=== PATIENT | female | born 1975 | race African-American/Black ===

== ENCOUNTER 2016-07-17 05:04 | Emergency (ER) | payer OTHER ==
[~2016-07-17] VITALS: Ht 160 cm; Wt 94.7 kg
[~2016-07-17 05:04] MED LIST: AMLO10 PO; OMEP40CA2 PO
[2016-07-17 05:10] VITALS: BP 134/88; PULSE 85; RESP 18; TEMP 98.4; O2SAT 100
[2016-07-17] MEDS ORDERED: OMEP40CA2 PO (05:26)
[2016-07-17] MEDS ORDERED: AMLO10TA2 PO (05:26)
[2016-07-17] MEDS ORDERED: AMOXICILLIN/CLAVULANATE K 875 MG TAB PO ONE (05:30)
[2016-07-17] MEDS ORDERED: IBUPROFEN 800 MG TAB PO ONE (05:30)
[2016-07-17] MEDS ORDERED: AUGM875T PO (05:35)
--- NOTE | 2016-07-17 05:35 | PD ---
HPI Chief Complaint: ENT Complaint Time Seen by Provider: 05:29 Travel History International Travel<30 days: No Contact w/Intl Traveler<30days: No Traveled to known affect area: No History of Present Illness HPI 41-year-old female presents to the emergency department for complaint of right ear pain with purulent drainage. Patient is noted symptoms with worsening over the last 3 days. Patient has chronic right ear issues with intermittent drainage in the past. Patient reports she's been seen by an learning and development intern in the remote past 2 gave her prescription for eardrops that she is use sparingly as needed. Patient ran out of these drops and cannot recall what they were and purchased [id number] eardrops. No reported fever or chills patient does complain of pain with opening closing of the jaw and has also noted some throat pain. Patient is also noted some sinus drainage and posterior nasal drainage. Patient does not report any cough congestion shortness of breath chest pain abdominal pain nausea vomiting or other concerns. Patient denies . PFSH Past Medical History Narrative Medical Hypertension, heart murmur, ear infection, tubal ligation, no tobacco use; nursing notes reviewed Cancer: No Cardiovascular Problems: Yes (HTN, MURMUR) Diabetes: No Diminished Hearing: No Endocrine: No Gastrointestinal Disorders: Yes GERD: Yes Genitourinary: No Hepatitis: No Hiatal Hernia: No Hypertension: Yes Immune Disorder: No Musculoskeletal: No Neurologic: No Psychiatric: No Reproductive: No Respiratory: No Thyroid Disease: No Tetanus Vaccination: < 5 Years Influenza Vaccination: Yes ?: Not LMP: 07/16/16 : 5 Para: 5 Miscarriage: 0 Tubal Ligation: Yes Past Surgical History Abdominal Surgery: No AICD: No Cardiac Surgery: No Section: Yes Ear Surgery: No Endocrine Surgery: No Eye Surgery: No Genitourinary Surgery: No Gynecologic Surgery: Yes (TUBAL LIGATION) Joint Replacement: No Oral Surgery: No Pacemaker: No Thoracic Surgery: No Other Surgery: Yes Family History Family Hypercholesterolemia: Yes Social History Alcohol Use: Yes (SOCIALLY) Tobacco Use: No Substance Use: No Allergies-Medications (Allergen,Severity, Reaction): Coded Allergies: Percocet (Verified Allergy, Severe, 07/17/16) PT DENIES Reported Meds & Prescriptions Reported Meds & Active Scripts Active Augmentin (Amoxicillin-Clavulanate) 875-125 mg Tab 875 Mg PO BID not for use in CrCl <30 ml/min. Reported Omeprazole 40 Mg Cap 40 Mg PO DAILY Amlodipine (Amlodipine Besylate) 10 Mg Tab 10 Mg PO DAILY Review of Systems Except as stated in HPI: all other systems reviewed are Neg General / Constitutional: No: Fever, Chills HENT: Positive: Sore Throat, Congestion, Ear Discharge, Earache Cardiovascular: No: Chest Pain or Discomfort Respiratory: No: Shortness of Breath Gastrointestinal: No: Vomiting Genitourinary: No: Dysuria Musculoskeletal: No: Pain Skin: No Rash Psychiatric: No: Depression Hematologic/Lymphatic: No: Lymph Node Enlargement Physical Exam Narrative GENERAL: Well-developed well-nourished female in no acute distress no respiratory distress SKIN: Warm and dry. HEAD: Normocephalic. EYES: No scleral icterus. No injection or drainage. ENT: Mucous membranes moist airway is patent tonsillar edema with scant exudative change; tympanic membranes left no redness no dullness no loss of landmarks, right small perforation with scant amount of purulent drainage no blood noted no external auditory canal edema erythema noted. NECK: Supple, trachea midline. No JVD or lymphadenopathy. CARDIOVASCULAR: Regular rate and rhythm without murmurs, gallops, or rubs. RESPIRATORY: Breath sounds equal bilaterally. No accessory muscle use. GASTROINTESTINAL: Abdomen soft, non-tender, nondistended. MUSCULOSKELETAL: No cyanosis, or edema. BACK: Nontender without obvious deformity. No CVA tenderness. Data Data Last Documented VS Vital Signs Date Time Temp Pulse Resp B/P Pulse Ox O2 Delivery O2 Flow Rate FiO2 07/17/16 05:10 98.4 85 18 134/88 100 Orders Group A Rapid Strep Screen (07/17/16 05:29) Amoxicil-Clavulanate (Augmentin) (07/17/16 05:30) Ibuprofen (Motrin) (07/17/16 05:30) Strep Culture (Group A) (07/17/16 05:45) MDM Medical Decision Making Medical Screen Exam Complete: Yes Emergency Medical Condition: Yes Medical Record Reviewed: Yes Interpretation(s) RSA: negative Differential Diagnosis Otitis media, tympanic membrane perforation, otitis externa, sinusitis, pharyngitis upper respiratory infection Narrative Course Rapid strep antigen ordered; first dose of oral antibiotic Augmentin 875 administered along with ibuprofen 800 mg times one dose Patient encouraged to follow-up with learning and development intern Diagnosis Primary Impression: Otitis media Qualified Code: H66.011 - Acute suppurative otitis media of right ear with spontaneous rupture of tympanic membrane, recurrence not specified Referrals: Ear / Nose / Throat Specialist call for appointment Patient Instructions: General Instructions Med/Other Pt SpecificInfo: Prescription(s) given Scripts Amoxicillin-Clavulanate (Augmentin)875-125 mg Gao475 Mg PO BID #20 TAB Ref 0 not for use in CrCl <30 ml/min. Prov:Carrie Ogden MD 07/17/16 Disposition: DISCHARGE HOME Condition: Stable Carrie Ogden MD Jul 17, 2016 05:35
== END 2016-07-17 05:50 | disposition home or self-care (01) ==
LOC: PHED 05:04
DX: H66.011 Acute suppurative otitis media with spontaneous rupture of ear drum, right ear (principal); R07.0 Pain in throat; R09.82 Postnasal drip; I10 Essential (primary) hypertension; Z86.79 Personal history of other diseases of the circulatory system; Z87.19 Personal history of other diseases of the digestive system
CPT/HCPCS: 87081; 87880; 99283

== ENCOUNTER → 2016-08-04 | Outpatient (CLI) | payer OTHER ==
[~2016-08-04] MED LIST changes: -AMLO10 PO; +AMLO10TA2 PO; +AUGM875T PO
[2016-08-04 08:27] LABS: AUTOMATED NEUTROPHIL # 4.5 TH/MM3 (1.8-7.7); BASOPHIL # 0.1 TH/MM3 (0-0.2); BASOPHIL % 0.9 % (0.0-2.0); EOSINOPHIL # 0.1 TH/MM3 (0-0.4); EOSINOPHIL % 1.6 % (0.0-4.0); HEMATOCRIT 38.3 % (35.0-46.0); HEMO FLAGS DIFF FINAL; LYMPH % 28.7 % (9.0-44.0); LYMPHOCYTE # 2.2 TH/MM3 (1.0-4.8); MEAN CELL VOLUME 89.7 FL (80.0-100.0); MEAN CORPUSCULAR HEMOGLOBIN 29.3 PG (27.0-34.0); MEAN CORPUSCULAR HGB CONC 32.7 % (32.0-36.0); MONO % 9.7 % (0.0-8.0); NEUT % 59.1 % (16.0-70.0); PLATELET COUNT 281 TH/MM3 (150-450); RED BLOOD COUNT 4.27 MIL/MM3 (4.00-5.30); RED CELL DISTRIBUTION WIDTH 13.6 % (11.6-17.2); WHITE BLOOD COUNT 7.6 TH/MM3 (4.0-11.0)
[2016-08-04 08:53] LABS: ANION GAP 8 MEQ/L (5-15); AST (GOT) 10 U/L (15-37); BICARBONATE 25.5 MEQ/L (21.0-32.0); BLOOD UREA NITROGEN 10 MG/DL (7-18); CHLORIDE 108 MEQ/L (98-107); GLOMERULAR FILTRATION RATE 98 ML/MIN (>89); GLUCOSE,FASTING 77 MG/DL (74-99); POTASSIUM 3.9 MEQ/L (3.5-5.1); SODIUM (NA) 141 MEQ/L (136-145)
[2016-08-04 09:18] LABS: ALKALINE PHOSPHATASE 85 U/L (45-117); ALT (GPT) 24 U/L (10-53); HDL CHOLESTEROL 40.6 MG/DL (40.0-60.0); LDL CHOLESTEROL 77 MG/DL (0-99); TOTAL BILIRUBIN ADULT 0.7 MG/DL (0.2-1.0)
[2016-08-04 12:27] LABS: HEMOGLOBIN A1a 0.9 %; HEMOGLOBIN A1b 1.5 %; HEMOGLOBIN Ao 86.2 %; HEMOGLOBIN LA1C 1.9 %; HEMOGLOBIN P3 3.6 %
== END ==
LOC: CLAB 08:01
PROVIDERS: ATTEND Family Medicine
DX: Z00.00 Encounter for general adult medical examination without abnormal findings (principal)
CPT/HCPCS: 36415; 80053; 80061; 82306; 82607; 82746; 83036; 84443; 85025; 86703

== ENCOUNTER → 2016-08-18 | Day surgery (SDC) | payer OTHER ==
[~2016-08-18] MED LIST changes: +BACITRACIN IM FOR SOLN 50,000 UNIT VIAL ONE; +BUPIVACAINE HCL PF 0.75% 30 ML VIAL ONE; +EPINEPHrine HCL (1:1000) 30 MG/30 ML VIAL ONE; +LACTATED RINGER'S 1000 ML INJ 1,000 ML ONE; +LIDOCAINE 1%/EPINEPHrine 1:200,000 PF SOLN 10 ML VIAL NERV BLOCK ONE; +MIDAZOLAM HCL 5 MG/ML VIAL (1 ML) ONE; +ONDANSETRON HCL 4 MG/2 ML VIAL IV PUSH ONE; +PROPOFOL 200 MG/20 ML AMP IV ONE; +SODIUM CHLORIDE 0.9% INJ 10 ML ONE; +ceFAZolin 2 GM PREMIX 50 ML ONE; +ceFAZolin INJ 1,000 MG VIAL ONE
--- NOTE | 2016-08-19 07:00 | MP ---
cc: CLARY MORAES M.D. DATE OF SURGERY 08/18/2016 PREOPERATIVE DIAGNOSIS Right knee anterior cruciate ligament tear, right knee lateral meniscus tear. POSTOPERATIVE DIAGNOSES Right knee anterior cruciate ligament tear, right knee lateral meniscus tear. PROCEDURE 1. Right knee arthroscopic anterior cruciate ligament allograft Reconstruction. 2. Right knee arthroscopic partial lateral meniscectomy. SURGEON Clary Moraes MD MILLWRIGHT ALMAS Schmidt ANESTHESIA General with femoral nerve block. ESTIMATED BLOOD LOSS Less than 50 cc TOURNIQUET TIME 0 minutes COMPLICATIONS None IMPLANTS USED Arthrex JUSTIFICATION The patient is a 41-year female who injured the right knee. She had pains and instability symptoms in regards to her condition, failure of conservative treatment. Clinical exam as well as MRI confirmed the above-named findings. The patient counseled as to the risks, benefits and alternatives to the above-named proposed surgical procedure. She did wish to proceed with surgery. PROCEDURE IN DETAIL A written consent obtained. The patient identified by name. She was taken to the operating room, placed supine on outpatient. General anesthesia was administered as well as two grams of IV Ancef. A well-padded tourniquet was placed on the right thigh. The right lower extremity prepped and draped using Isopropyl alcohol, Hibiclens solution and DuraPrep solution. After a time-out was performed, a standard medial and lateral parapatellar arthroscopic portal was established. The patellofemoral joint revealed minimal chondromalacia. The medial compartment revealed no significant chondromalacia. The medial meniscus was probed. No evidence of full-thickness tearing. The anterior cruciate ligament was examined and noted to have a full-thickness tear. The lateral meniscus showed a bucket-handle tear with multiple complex tears within the meniscus itself. An arthroscopic biter followed by an arthroscopic shaver was introduced into the lateral compartment to perform partial lateral meniscectomy. The meniscal rim was probed and noted to be stable. There is focal grade 2 chondromalacia in the lateral femoral condyle in line with the bucket-handle tear. The shaver was used to perform a debridement of the torn anterior cruciate ligament stump. An arthroscopic bur was used to perform a notchplasty. An Arthrex retro cutting tibial guide centered within the footprint of the [place] ACL insertion and a guide pin was used to capture the 10-mm reamer and the tibial tunnel retro cut to 10 mm in diameter. An Arthrex 7-mm [id number] medial portal guide was placed along the wall lateral femoral condyle and the knee was hyperflexed. From the medial portal, a guide pin was then drilled exiting the lateral femoral condyle and a low profile 10 mm cannulated reamer was drilled to a depth of 25 mm. The shaver was used to clean soft tissue and bone debris from within the knee joint. A FiberLink suture was then used to shuttle with the Beath needle from the medial portal exiting the lateral femoral condyle and some point from the tibial tunnel. On the back table, the still worker helper tibialis tendon allograft was thawed in antibiotic solution. Physician Jossy Schmidt Certified, fashioning the graft to a folded diameter of 10 mm. #2 FiberWire sutures were placed in proximal and distal portion of the graft and the graft was pre-tensioned on the back table. An Arthrex tightrope suture anchor was placed in the midportion of the graft. The sutures from the tightrope were then placed through the eyelet of the FiberLink suture and then shuttled from the tibial tunnel exiting the femoral tunnel. The tightrope button was then pulled from the tibial tunnel exiting the lateral femoral condyle. There was good purchase and fixation once it was pulled distally from lateral cortex. The graft taken from the tibial tunnel was then seated into the femoral tunnel. The graft was taken through a full range of motion. No evidence of pistoning or impingement. With the leg held in near full extension, a guidewire was placed along the anterior border of the graft and an Arthrex 10 x 28 mm bioabsorbable screw was used for interference fixation on the tibial side. An intraoperative Zach examination was performed which was negative. The graft exiting the tibial tunnel was removed with a 10 blade scalpel. The tibial incision was closed with 3-0 Vicryl suture. Skin incisions closed with 3-0 Prolene. Sterile dressing applied. The patient tolerated the procedure well. No intraoperative complications noted. Physician Jossy Schmidt Certified was present during the entire procedure to include patient positioning and the procedure itself. The medical necessity of a physician laundry assistant was indicated in this case due to the complexity of the procedure. He assisted with appropriate manipulation of the leg and manipulation of the camera. He assisted with drilling of tibial and femoral tunnels, as well as implantation of the graft and implantation of internal fixation devices for reconstruction. He also assisted with preparation of the graft for the purposes of reconstruction. MD MARK Cortez/MICHAEL /2:25 PM /6:41 AM
== END | disposition home or self-care (01) ==
LOC: ESDC 11:14
PROVIDERS: ATTEND Orthopaedic Surgery Sports Medicine
DX: S83.511A Sprain of anterior cruciate ligament of right knee, initial encounter (principal); S83.251A Bucket-handle tear of lateral meniscus, current injury, right knee, initial encounter
CPT/HCPCS: 01400; 01991; 29881; 29888; 64447; C1713; J0171; J0690; J2250; J2405; J3010; J7120

== ENCOUNTER → 2016-10-04 | Outpatient (CLI) | payer OTHER ==
[~2016-10-04] MED LIST changes: -BACITRACIN IM FOR SOLN 50,000 UNIT VIAL ONE; -BUPIVACAINE HCL PF 0.75% 30 ML VIAL ONE; -EPINEPHrine HCL (1:1000) 30 MG/30 ML VIAL ONE; -LACTATED RINGER'S 1000 ML INJ 1,000 ML ONE; -LIDOCAINE 1%/EPINEPHrine 1:200,000 PF SOLN 10 ML VIAL NERV BLOCK ONE; -MIDAZOLAM HCL 5 MG/ML VIAL (1 ML) ONE; -ONDANSETRON HCL 4 MG/2 ML VIAL IV PUSH ONE; -PROPOFOL 200 MG/20 ML AMP IV ONE; -SODIUM CHLORIDE 0.9% INJ 10 ML ONE; -ceFAZolin 2 GM PREMIX 50 ML ONE; -ceFAZolin INJ 1,000 MG VIAL ONE
[2016-10-04 10:55] LABS: BACTERIA, URINE OCC /hpf; BLOOD, URINE NEG (NEG); GLUCOSE,URINE NEG (NEG); KETONE, URINE NEG (NEG); MUCUS URINE FEW /lpf (OCC); NITRITE,URINE NEG (NEG); PH, URINE 6.5 (5.0-8.5); SQUAMOUS EPITHELIAL CELL URINE 2 /hpf (0-5); URINE COLOR YELLOW (YELLW/STRAW)
== END ==
LOC: CLAB 10:06
PROVIDERS: ATTEND Family Medicine
DX: Z00.00 Encounter for general adult medical examination without abnormal findings (principal)
CPT/HCPCS: 81001

== ENCOUNTER 2017-06-11 09:01 | Emergency (ER) | payer OTHER ==
[~2017-06-11] VITALS: Ht 162.6 cm; Wt 93.0 kg
[2017-06-11 09:12] VITALS: BP 114/73; PULSE 80; RESP 17; TEMP 98; O2SAT 98
--- NOTE | 2017-06-11 09:20 | PD ---
HPI Chief Complaint: Syncope/Near-Syncope Time Seen by Provider: 09:15 Travel History International Travel<30 days: No Contact w/Intl Traveler<30days: No Traveled to known affect area: No History of Present Illness HPI Apparently the patient exhibited some episodes of dizziness when she got up from the bathroom and also experienced another episode while she was on her bed. Seems to get worse whenever she changes positions particularly overhead. Room spinning sensation. Allergies listed as oxycodone Past medical history significant for hypertension, murmur, cholecystectomy, GERD , tubal ligation, , PFSH Past Medical History Cancer: No Cardiovascular Problems: Yes (HTN, MURMUR) Diabetes: No Diminished Hearing: No Endocrine: No Gastrointestinal Disorders: Yes GERD: Yes Genitourinary: No Hepatitis: No Hiatal Hernia: No Hypertension: Yes Immune Disorder: No Musculoskeletal: No Neurologic: No Psychiatric: No Reproductive: No Respiratory: No Thyroid Disease: No ?: Not LMP: 06/06 : 5 Para: 5 Miscarriage: 0 Tubal Ligation: Yes Past Surgical History Abdominal Surgery: No AICD: No Cardiac Surgery: No Section: Yes Cholecystectomy: Yes Ear Surgery: No Endocrine Surgery: No Eye Surgery: No Genitourinary Surgery: No Gynecologic Surgery: Yes (TUBAL LIGATION) Joint Replacement: No Oral Surgery: No Pacemaker: No Thoracic Surgery: No Other Surgery: Yes Family History Family Hypercholesterolemia: Yes Social History Alcohol Use: Yes (SOCIALLY) Tobacco Use: No Substance Use: No Allergies-Medications (Allergen,Severity, Reaction): Coded Allergies: acetaminophen (Unverified Allergy, Severe, 06/11/17) PT DENIES oxycodone (Unverified Allergy, Severe, 06/11/17) PT DENIES Reported Meds & Prescriptions Reported Meds & Active Scripts Active Reported Omeprazole 40 Mg Cap 40 Mg PO DAILY Amlodipine (Amlodipine Besylate) 10 Mg Tab 10 Mg PO DAILY Review of Systems General / Constitutional: No: Fever Eyes: No: Visual changes HENT: Positive: Vertigo Cardiovascular: No: Chest Pain or Discomfort Respiratory: No: Shortness of Breath Gastrointestinal: No: Abdominal Pain Genitourinary: No: Dysuria Musculoskeletal: No: Pain Skin: No Rash Neurologic: No: Weakness Psychiatric: No: Depression Endocrine: No: Polydipsia Hematologic/Lymphatic: No: Easy Bruising Physical Exam Narrative GENERAL: SKIN: Warm and dry. HEAD: Atraumatic. Normocephalic. EYES: Pupils equal and round. No scleral icterus. No injection or drainage. ENT: No nasal bleeding or discharge. Mucous membranes pink and moist. NECK: Trachea midline. No JVD. CARDIOVASCULAR: Regular rate and rhythm. RESPIRATORY: No accessory muscle use. Clear to auscultation. Breath sounds equal bilaterally. GASTROINTESTINAL: Abdomen soft, non-tender, nondistended. Hepatic and splenic margins not palpable. MUSCULOSKELETAL: Extremities without clubbing, cyanosis, or edema. No obvious deformities. NEUROLOGICAL: Awake and alert. No obvious cranial nerve deficits. Motor grossly within normal limits. Five out of 5 muscle strength in the arms and legs. Normal speech. PSYCHIATRIC: Appropriate mood and affect; insight and judgment normal. Data Data Last Documented VS Vital Signs Date Time Temp Pulse Resp B/P (MAP) Pulse Ox O2 Delivery O2 Flow Rate FiO2 06/11/17 09:12 98.0 80 17 114/73 (87) 98 Room Air Orders Orders Electrocardiogram (06/11/17 10:11) Complete Blood Count With Diff (06/11/17 10:11) Comprehensive Metabolic Panel (06/11/17 10:11) Troponin I (06/11/17 10:11) B-Type Natriuretic Peptide (06/11/17 10:11) Lipase (06/11/17 10:11) Urinalysis - C+S If Indicated (06/11/17 10:11) Thyroid Stimulating Hormone (06/11/17 10:11) Ct Brain W/O Iv Contrast(Rout) (06/11/17 10:11) Ed Urine Pregnancytest Poc (06/11/17 10:11) Drug Screen, Random Urine (06/11/17 10:11) Alcohol (Ethanol) (06/11/17 10:11) Urine Culture (06/11/17 10:21) Ed Discharge Order (06/11/17 12:51) Labs Laboratory Tests Test 06/11/17 09:20 06/11/17 10:21 White Blood Count 5.1 TH/MM3 Red Blood Count 4.25 MIL/MM3 Hemoglobin 13.2 GM/DL Hematocrit 38.8 % Mean Corpuscular Volume 91.3 FL Mean Corpuscular Hemoglobin 31.0 PG Mean Corpuscular Hemoglobin Concent 34.0 % Red Cell Distribution Width 13.4 % Platelet Count 329 TH/MM3 Mean Platelet Volume 8.0 FL Neutrophils (%) (Auto) 59.2 % Lymphocytes (%) (Auto) 30.8 % Monocytes (%) (Auto) 8.3 % Eosinophils (%) (Auto) 0.9 % Basophils (%) (Auto) 0.8 % Neutrophils # (Auto) 3.0 TH/MM3 Lymphocytes # (Auto) 1.6 TH/MM3 Monocytes # (Auto) 0.4 TH/MM3 Eosinophils # (Auto) 0.0 TH/MM3 Basophils # (Auto) 0.0 TH/MM3 CBC Comment DIFF FINAL Differential Comment Blood Urea Nitrogen 10 MG/DL Creatinine 0.82 MG/DL Random Glucose 99 MG/DL Total Protein 7.6 GM/DL Albumin 3.5 GM/DL Calcium Level 8.6 MG/DL Alkaline Phosphatase 76 U/L Aspartate Amino Transf (AST/SGOT) 13 U/L Alanine Aminotransferase (ALT/SGPT) 27 U/L Total Bilirubin 0.4 MG/DL Sodium Level 143 MEQ/L Potassium Level 3.9 MEQ/L Chloride Level 111 MEQ/L Carbon Dioxide Level 21.7 MEQ/L Anion Gap 10 MEQ/L Estimat Glomerular Filtration Rate 93 ML/MIN Troponin I LESS THAN 0.02 NG/ML B-Type Natriuretic Peptide 3 PG/ML Lipase 117 U/L Thyroid Stimulating Hormone 3rd Gen 1.060 uIU/ML Ethyl Alcohol Level 49 MG/DL Urine Color YELLOW Urine Turbidity HAZY Urine pH 6.5 Urine Specific [place] 1.019 Urine Protein TRACE mg/dL Urine Glucose (UA) NEG mg/dL Urine Ketones TRACE mg/dL Urine Occult Blood LARGE Urine Nitrite POS Urine Bilirubin NEG Urine Urobilinogen LESS THAN 2.0 MG/DL Urine Leukocyte Esterase TRACE Urine RBC 1 /hpf Urine WBC 4 /hpf Urine Squamous Epithelial Cells 13 /hpf Urine Bacteria FEW /hpf Urine Mucus MOD /lpf Microscopic Urinalysis Comment CULTURE INDICATED Urine Opiates Screen NEG Urine Barbiturates Screen NEG Urine Amphetamines Screen NEG Urine Benzodiazepines Screen NEG Urine Cocaine Screen NEG Urine Cannabinoids Screen NEG MDM Medical Decision Making Medical Screen Exam Complete: Yes Emergency Medical Condition: Yes Medical Record Reviewed: Yes Interpretation(s) EKG shows normal sinus rhythm, 79 bpm, JEZ pattern noted, no STEMI pattern noted. Pulse ox pulse ox on room air which is within normal limits Differential Diagnosis Vertigo versus intracranial hemorrhage versus electrolyte abnormalities versus atypical STEMI Narrative Course UA C/W UTI TOX SCREEN NEG BUT ETOH 49 CBC NEG LEUKOCYTOSIS/ANEMIA/ OR LEFT SHIFT, NORMAL PLATELETS NORMAL ELECTROLYTES, NORMAL LIVER/KIDNEY/PANCREAS AND TSH Diagnosis Primary Impression: Vertigo Additional Impressions: Right otitis media Qualified Codes: H65.91 - Unspecified nonsuppurative otitis media, right ear UTI (urinary tract infection) Qualified Codes: N30.00 - Acute cystitis without hematuria Patient Instructions: Ear Infection (ED), General Instructions, Urinary Tract Infection in Women (DC), Vertigo (DC) Scripts Meclizine (Meclizine) 25 Mg Tab 25 MG PO TID Y for VERTIGO for 5 Days, #15 TAB 0 Refills Prov: Oumar Polk MD 06/11/17 Ciprofloxacin (Cipro) 500 Mg Tab 500 MG PO BID for Infection for 5 Days, #10 TAB 0 Refills Prov: Oumar Polk MD 06/11/17 Disposition: 01 DISCHARGE HOME Condition: Stable Oumar Polk MD Jun 11, 2017 09:20
[2017-06-11 10:52] LABS: BASOPHIL % 0.8 % (0.0-2.0); EOSINOPHIL % 0.9 % (0.0-4.0); HEMATOCRIT 38.8 % (35.0-46.0); HEMOGLOBIN 13.2 GM/DL (11.6-15.3); LYMPH % 30.8 % (9.0-44.0); LYMPHOCYTE # 1.6 TH/MM3 (1.0-4.8); MEAN CELL VOLUME 91.3 FL (80.0-100.0); MONO % 8.3 % (0.0-8.0); MONOCYTE # 0.4 TH/MM3 (0-0.9); NEUT % 59.2 % (16.0-70.0); PLATELET COUNT 329 TH/MM3 (150-450); RED BLOOD COUNT 4.25 MIL/MM3 (4.00-5.30); RED CELL DISTRIBUTION WIDTH 13.4 % (11.6-17.2); WHITE BLOOD COUNT 5.1 TH/MM3 (4.0-11.0)
[2017-06-11 10:58] LABS: ALBUMIN 3.5 GM/DL (3.4-5.0); AST (GOT) 13 U/L (15-37); BICARBONATE 21.7 MEQ/L (21.0-32.0); BLOOD UREA NITROGEN 10 MG/DL (7-18); CALCIUM 8.6 MG/DL (8.5-10.1); CHLORIDE 111 MEQ/L (98-107); CREATININE 0.82 MG/DL (0.50-1.00); GLOMERULAR FILTRATION RATE 93 ML/MIN (>89); GLUCOSE,RANDOM 99 MG/DL (74-106); SODIUM (NA) 143 MEQ/L (136-145)
[2017-06-11 10:59] LABS: ALT (GPT) 27 U/L (10-53)
[2017-06-11 11:09] LABS: ALKALINE PHOSPHATASE 76 U/L (45-117); TOTAL BILIRUBIN ADULT 0.4 MG/DL (0.2-1.0); TOTAL PROTEIN 7.6 GM/DL (6.4-8.2); TROPONIN I LESS THAN 0.02 NG/ML (0.02-0.05)
[2017-06-11 11:39] LABS: BACTERIA, URINE FEW /hpf; BILIRUBIN, URINE NEG (NEG); BLOOD, URINE LARGE (NEG); GLUCOSE,URINE NEG (NEG); KETONE, URINE TRACE mg/dL (NEG); MUCUS URINE MOD /lpf (OCC); NITRITE,URINE POS (NEG); PH, URINE 6.5 (5.0-8.5); SQUAMOUS EPITHELIAL CELL URINE 13 /hpf (0-5); URINE COLOR YELLOW (YELLW/STRAW); URINE LEUKOCYTE ESTERASE TRACE (NEG)
--- NOTE | 2017-06-11 11:48 | RADRPT ---
EXAM DATE/TIME: 06/11/2017 11:12 [facility] COMPARISON: No previous studies available for comparison. INDICATIONS : Dizziness, nausea. RADIATION DOSE: 39.43 CTDIvol (mGy) MEDICAL HISTORY : Cardiovascular disease. Hypertension. SURGICAL HISTORY : Tubal ligation. ENCOUNTER: Initial ACUITY: 1 day PAIN SCALE: 0/10 LOCATION: cranial TECHNIQUE: Multiple contiguous axial images were obtained of the head. Using automated exposure control and adj ustment of the mA and/or kV according to patient size, radiation dose was kept as low as reasonably a chievable to obtain optimal diagnostic quality images. DICOM format image data is available electro nically for review and comparison. FINDINGS: CEREBRUM: The ventricles are normal for age. No evidence of midline shift, mass lesion, hemorrhage or acute in farction. No extra-axial fluid collections are seen. POSTERIOR FOSSA: The cerebellum and brainstem are intact. The 4th ventricle is midline. The cerebellopontine angle i s unremarkable. EXTRACRANIAL: The visualized portion of the orbits is intact. SKULL: The calvaria is intact. No evidence of skull fracture. CONCLUSION: Normal examination. Nigel Deleon MD on June 11, 2017 at 11:46 Board Certified Radiologist. This report was verified electronically.
[2017-06-11] MEDS ORDERED: MECL-62 PO (12:56)
[2017-06-11] MEDS ORDERED: CIPR-9 PO (12:56)
--- NOTE | 2017-06-11 14:58 | EKG ---
Date Performed: 06/11/2017 Time Performed: 09:15:59 PTAGE: 42 years EKG: Sinus rhythm NORMAL ECG Compared to prior electrocardiogram, rate has increased PREVIOUS TRACING : 07/13/2015 23.09 DOCTOR: Paul Resendiz Interpretating Date/Time 06/11/2017 14:57:26
== END 2017-06-11 13:27 | disposition home or self-care (01) ==
LOC: NEPC 09:01
DX: R42 Dizziness and giddiness (principal); H65.91 Unspecified nonsuppurative otitis media, right ear; N30.00 Acute cystitis without hematuria; I10 Essential (primary) hypertension; K21.9 Gastro-esophageal reflux disease without esophagitis
CPT/HCPCS: 70450; 80053; 80307; 81001; 83690; 83880; 84443; 84484; 84703; 85025; 87086; 93005

== ENCOUNTER → 2017-09-23 | Outpatient (CLI) | payer OTHER, MEDICAID ==
[~2017-09-23] MED LIST changes: -AUGM875T PO; +CIPR-9 PO; +MECL-62 PO
[2017-09-23 11:55] LABS: ALKALINE PHOSPHATASE 67 U/L (45-117); ALT (GPT) 33 U/L (10-53); FOLATE 18.2 NG/ML (3.1-17.5); TOTAL BILIRUBIN ADULT 0.7 MG/DL (0.2-1.0); TOTAL PROTEIN 7.7 GM/DL (6.4-8.2)
[2017-09-23 12:05] LABS: ALBUMIN 3.7 GM/DL (3.4-5.0); AST (GOT) 19 U/L (15-37); BICARBONATE 18.9 MEQ/L (21.0-32.0); BLOOD UREA NITROGEN 12 MG/DL (7-18); CALCIUM 8.4 MG/DL (8.5-10.1); CHLORIDE 111 MEQ/L (98-107); CREATININE 0.77 MG/DL (0.50-1.00); GLOMERULAR FILTRATION RATE 100 ML/MIN (>89); GLUCOSE,FASTING 86 MG/DL (74-99); SODIUM (NA) 140 MEQ/L (136-145)
[2017-09-23 22:48] LABS: HEMOGLOBIN A1C 5.1 % (4.3-6.0)
== END ==
LOC: CLAB 10:41
PROVIDERS: ATTEND Family Medicine
DX: E53.8 Deficiency of other specified B group vitamins (principal)
CPT/HCPCS: 36415; 80053; 82607; 82746; 83036